=== PATIENT | male | born 1965 | race Caucasian/White ===

== ENCOUNTER 2017-02-23 08:12 | Day surgery (SDC) | payer OTHER, SELFPAY ==
[2017-02-23] VITALS (10 sets, daily range): BP systolic 90–135; BP diastolic 56–70; PULSE 51–81; RESP 12–20; TEMP 36.3–36.9; O2SAT 93–100; BMI 29.8
--- NOTE | 2017-02-23 10:10 | P.PCN_ITS ---
- Procedure: Date: 02/23/17 Patient Date of :: 1965 Procedure Performed:: Colonoscopy with cold snare polypectomy Equipment: Olympus 180 variable stiffness pediatric colonoscope Indications:: Mr. De La Rosa is a 51-year-old gentleman who is here for initial screening colonoscopy. His brother had advanced colon cancer at the age of 49. The patient reports no abdominal pain, weight loss, change in his bowel habits or rectal bleeding. He recently had a melanoma removed in precancerous skin lesions. Performing Provider:: Elder Barry MD Referring Provider:: May STRICKLAND Sedation:: Fentanyl 150 mg IV/ Versed 7 mg IV Procedure:: Colonoscopy with cold snare polypectomy Findings:: On digital rectal examination there was normal rectal tone. There were no external hemorrhoids. The prostate was 2+, smooth, soft, symmetric without nodules. The colonoscope was introduced through the anal canal to the rectum and advanced to the cecum. The ileocecal valve and appendiceal orifice were identified. The scope was advanced a short distance into the ileum which appeared grossly normal. The scope was then withdrawn into the colon. The cecum , ascending, transverse, descending, sigmoid and rectum were grossly normal. There was a single diminutive 3-4 mm polyp in the descending colon removed via cold snare polypectomy. Upon retroflexion within the rectum there were grade 1 internal hemorrhoids. Impression: 1. Diminutive descending polyp 2. Small grade 1 internal hemorrhoids Recommendations:: I will follow up the polyp pathology and recommend repeat colonoscopy again in 5 years based upon the patient's family history and polyp histology. Complications:: None Estimated blood obtained (mL): 0
== END 2017-02-23 11:00 | disposition home or self-care (01) ==
PROVIDERS: PCP Nurse Practitioner Family; Visit Provider Internal Medicine Gastroenterology
PROC: 0DJD8ZZ Inspection of Lower Intestinal Tract, Via Natural or Artificial Opening Endoscopic (ICD-10-PCS; CPT 45378; principal; 2017-02-23 09:30)
DX: Z12.11 Encounter for screening for malignant neoplasm of colon (principal); Z80.0 Family history of malignant neoplasm of digestive organs; Z85.820 Personal history of malignant melanoma of skin; D12.4 Benign neoplasm of descending colon; K64.0 First degree hemorrhoids
CPT/HCPCS: 45380; 99152

== ENCOUNTER 2024-05-12 15:15 | Outpatient (CLI) | payer MEDICAID, SELFPAY ==
--- NOTE | 2024-05-12 15:18 | CT_ITS ---
FINAL REPORT TECHNIQUE: Thin section axial images were obtained from the lung apices to the upper abdomen by computed tomography. Reformatted images were obtained and reviewed. This study was performed with techniques to keep radiation doses al low as reasonably achievable (ALARA). Individualized dose reduction techniques using automated exposure control or adjustment of mA and/or kV according to the patient's size were employed. CLINICAL HISTORY: SCREENING SMOKES 1 PK DAY X 30 YRS HX OF MELANOMA COMPARISON: None FINDINGS: CHEST CT LOW DOSE HISTORY: 58-year-old male, current smoker, 32-[id number] history. CTDI vol (mGy): 2.90 DLP (mGy-cm): 102.64 There is no axillary adenopathy. There is no mediastinal or hilar mass or adenopathy. The heart is normal in size. There is no pericardial or pleural effusion. Lung window images demonstrate a 3 mm posterior right upper lobe nodule, best seen on image #40 of series 4. Limited images of the upper abdomen are unremarkable. IMPRESSION: Lung-RADS category 2. Recommend 12 month follow up low dose chest CT. Reviewed, Interpreted and Dictated by Kal Warner MD Transcribed by Carina Obrien Authenticated and [facility]
== END 2024-05-12 23:59 | disposition home or self-care (01) ==
LOC: RAD 15:16
PROVIDERS: PCP Nurse Practitioner; Visit Provider Nurse Practitioner
DX: F17.210 Nicotine dependence, cigarettes, uncomplicated (principal)
CPT/HCPCS: 71271